=== PATIENT | male | born 1980 ===

== ENCOUNTER 2022-10-26 08:21 | Outpatient (CLI) | payer BC, SELFPAY ==
[2022-10-26 14:01] LABS: C Reactive Protein* 0.7 mg/dL (0.5-1.0)
== END 2022-10-26 08:22 | disposition home or self-care (01) ==
LOC: LKVREF 08:22
PROVIDERS: Visit Provider Emergency Medicine
DX: R10.9 Unspecified abdominal pain (principal); R11.0 Nausea
CPT/HCPCS: 86140

== ENCOUNTER 2022-12-07 15:09 | Outpatient (CLI) | payer BC, SELFPAY | END 2022-12-07 15:10 | disposition home or self-care (01) | LOC: LKVREF 15:10 | PROVIDERS: Visit Provider Emergency Medicine | DX: Z01.818 Encounter for other preprocedural examination (principal) | CPT/HCPCS: 80048 ==

== ENCOUNTER 2022-12-26 06:09 | Day surgery (SDC) | payer BC, SELFPAY ==
[2022-12-26] VITALS (12 sets, daily range): BP systolic 116–134; BP diastolic 75–98; PULSE 67–86; RESP 14–16; TEMP 35.9–36.2; O2SAT 95–99; BMI 26.0
[2022-12-26] MEDS: LACTATED RINGERS 1000 ML 1,000 ML 100 ML IV ×2 (06:10→08:24)
[2022-12-26] MEDS: SODIUM CHLORIDE 0.9 % (FLUSH) 10 ML SYRINGE IVF (06:45)
[2022-12-26] MEDS: SCOPOLAMINE 1 MG/3 DAY PATCH 1 PATCH TRANSDERMA (07:20)
[2022-12-26] MEDS: CEFAZOLIN 2 GM INJ IVP (07:35)
--- NOTE | 2022-12-26 07:47 | W.ANESCHARGE ---
Anesthesia Charges Start Date/Time Anesthesia Start Date: 12/26/22 Anesthesia Start Time: 07:22 Stop Date/Time Anesthesia Stop Date: 12/26/22 Anesthesia Stop Time: 09:43
[2022-12-26] MEDS: BUPIVACAINE 0.25% 30 ML 20 ML INJECTION (07:48)
--- NOTE | 2022-12-26 07:53 | SUR.OPER ---
PATIENT QUESTIONS ANSWERED SATISFACTORILY PREOPERATIVELY. PATIENT BROUGHT TO OR #1 PER CART. Patient positioned supine on OR# 1 bed. BILATERAL ARMS ARE TUCKED IN A NEUTRAL POSITION USING THE DRAWSHEET BY Demarco Final approval of positioning by surgeon.
--- NOTE | 2022-12-26 08:55 | SUR.PREOP ---
I have reviewed and concur with all assessments, medication administration, and documentation completed by Krys Lobato, student nurse.?
--- NOTE | 2022-12-26 09:42 | W.ANESCHARGE ---
Anesthesia Charges Start Date/Time Anesthesia Start Date: 12/26/22 Anesthesia Start Time: 07:22 Stop Date/Time Anesthesia Stop Date: 12/26/22 Anesthesia Stop Time: 09:43
--- NOTE | 2022-12-26 09:53 | P.GSOP_ITS ---
Operative Note Date of procedure: 12/26/22 Pre-op diagnosis: 1. Symptomatic right inguinal hernia and small left inguinal hernia. 2. Symptomatic umbilical hernia. Post-op diagnosis: 1. Right direct inguinal hernia. 2. Left direct and indirect inguinal hernia. 3.Incarcerated umbilical hernia containing preperitoneal fat. Type of Procedure: 1. Laparoscopic bilateral inguinal hernia repair with mesh. 2. Open umbilical hernia repair without mesh. Indications: 42-year-old female was seen in clinic for evaluation of a right inguinal bulge that he noticed 2 years ago when he was in a different state. 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 He was wearing a hernia belt and elected not to proceed with surgery. His pain has improved but the bulge was persistent. Most recently he was noticing that his pain at the bulge returned when he was walking or standing at work. Lying down improved his pain. Patient also had an umbilical bulge that was present for some time and that was occasionally painful. On clinical exam patient had a beal sized umbilical hernia that was painful to palpation. With the patient standing up he had small right and left inguinal hernias that were reducible. Given patient's clinical history and his physical exam, laparoscopic bilateral inguinal hernia repair and open umbilical hernia repair was recommended. The procedure was discussed in detail. The risks associated procedure including infection, bleeding, risk of recurrence, injury to preperitoneal organs and nerve injury were all discussed with the patient, and he agreed to proceed. Procedure Description: After discussing the risks and benefits of the procedure, the patient signed informed consent.? The operative site was marked and the patient was brought to the operating room and placed on the operating table in supine position.? Care was taken to pad the patient's pressure points.?? The patient was then intubated by anesthesia.?? The operative site was then prepped and draped in the usual sterile fashion.? A time-out was then performed. Local anesthetic was injected at the umbilicus. A supraumbilical skin incision was made with a scalpel and subcutaneous tissues were dissected with electrocautery. Anterior sheath was incised with electrocautery and rectus muscle was retracted laterally. A 12 mm [employer] dissector system was introduced into the incision and advanced over the posterior sheath. Preperitoneal space was dissected with manually insufflating air under direct visualization. Once the tissues were dissected, the balloon was deflated and removed.? A laparoscopic balloon was placed into preperitoneal space and balloon was inflated. Preperitoneal space was insufflated with air. No bleeding was identified upon examination of preperitoneal space. We then placed two 5 mm ports suprapubically under direct visualization. ? I first started on the right side. The right spermatic cord was adherent to the lateral abdominal wall. The preperitoneal tissues around the spermatic cord were bluntly dissected with graspers.? The pubic bone was identified and? cleared from preperitoneal tissue.?? Inferior epigastrics on right?side were retracted towards the abdominal wall.?? Spermatic cord? was dissected circumferentially.? the peritoneal edge was identified and a small opening was created in the peritoneum during the dissection. This was closed with 5 mm clips. The peritoneum was retracted cephalad. There was no evidence of indirect inguinal hernia. The Right direct hernia space was identified.?? When adequate space was developed for mesh placement, I continued to the left side. Preperitoneal space was developed on the left side bluntly. The left inferior epigastrics were retracted towards the abdominal wall. The left spermatic cord was dissected circumferentially. There was a small indirect hernia noted and that was reduced. The peritoneal edge was retracted cephalad bluntly and dissected away from the spermatic cord. Direct hernia space was noted on the left as well. When adequate space was developed for mesh placement, a left sided Parietex? mesh was used and positioned around the spermatic cord. The mesh was tacked medially and laterally with?tacks.? similarly, the right for right takes mesh was positioned around the spermatic cord. This mesh was secured in place with tacks laterally and medially. Additional local anesthetic was injected directly into pre-peritoneal space. ? The space was deflated under direct visualization and mesh appeared to be still lying in a good position. The ports were then removed. Anterior sheath was then closed with a running 0-0 vicryl suture. I then proceeded with an open umbilical hernia repair. The incarcerated preperitoneal fat was dissected away from the umbilicus. Subcutaneous fat was dissected away from the anterior fascia with cautery. The fascial opening was approximately 6 mm but the incarcerated fat was too large to reduce through this hernia defect. This preperitoneal fat was then excised with cautery. No bleeding was seen. The anterior fascia was then closed with interrupted 0-0 Nurolon stitches. The umbilicus was tacked down to the fascia with interrupted 3-0 Vicryl sutures. The dermis was reapproximated with interrupted 3-0 Vicryl sutures. Skin of all incisions was closed with 4-0 monocryl using subcuticular stitch. Steri strips were applied over the laparoscopic?incisions. A sterile 2 x 2 and 4 x 4 were placed over the umbilicus. ? All counts were correct at the end of the case. Patient tolerated the procedure well and was transferred to PACU without any complications. ? Findings: Right direct hernia, left direct and indirect hernia, and small umbilical hernia containing preperitoneal fat. Implants: Parietex mesh in the inguinal canals bilaterally. Anesthesia: GETA Surgeon: Rosa Zelaya MD Estimated blood loss (mL): 5 Condition: stable Disposition: PACU
[2022-12-26] MEDS: HYDROCODONE-ACETAMIN 5-325 MG 1 TAB PO (10:20)
== END 2022-12-26 11:16 | disposition home or self-care (01) ==
PROVIDERS: Visit Provider Surgery
PROC: (CPT 49650; principal; 2022-12-26 07:30)
DX: K42.0 Umbilical hernia with obstruction, without gangrene (principal); K40.20 Bilateral inguinal hernia, without obstruction or gangrene, not specified as recurrent
CPT/HCPCS: 49592; 49650; 00830; 00840; 00860; A9270; C1781; J0330; J0690; J1100; J1885; J2405; J2704; J3010; J3490; J7120